=== PATIENT | male | born 1975 | race Caucasian/White ===

== ENCOUNTER 2017-05-05 05:57 | Inpatient (IN) | payer OTHER ==
[2017-04-30 09:35] VITALS: BMI 31.6
[2017-05-05] MEDS ORDERED: PROPOFOL 20 ML ONE ×10 (06:13)
[2017-05-05] MEDS ORDERED: THROMBIN (BOVINE) 5,000 UNIT VIAL TP ONE ×2 (07:19→10:24)
[2017-05-05] MEDS ORDERED: GELATIN, ABSORBABLE 100 EACH SPONGE TP ONE ×2 (07:19→10:24)
[2017-05-05] MEDS ORDERED: MIDAZOLAM HCL 2 MG/2 ML SINGLE DOSE VIAL ONE (08:13)
[2017-05-05] MEDS ORDERED: fentaNYL CITRATE 250 MCG/5 ML VIAL ONE (08:13)
[2017-05-05] MEDS ORDERED: ROCURONIUM BROMIDE 50 MG/5 ML VIAL ONE ×2 (08:29→11:35)
[2017-05-05] MEDS ORDERED: LIDOCAINE HCL/PF 2% SDV 5ML VIAL ONE (08:29)
[2017-05-05] MEDS ORDERED: HYDROmorphone HCL/PF 1 MG/ML VIAL (FOR PYXIS CHARGING ONLY) ONE (10:48)
[2017-05-05] MEDS ORDERED: NEOSTIGMINE METHYLSULFATE 0.5 MG/ML - 10 ML MDV ONE (12:14)
[2017-05-05] MEDS ORDERED: ceFAZolin SODIUM 1 GM VIAL ONE (12:15)
[2017-05-05] MEDS ORDERED: GLYCOPYRROLATE 0.2 MG/1 ML VIAL ONE (12:15)
[2017-05-05] MEDS ORDERED: ONDANSETRON 4 MG/2 ML VIAL ONE (12:16)
[2017-05-05] MEDS ORDERED: BACITRACIN 15 GM TUBE TOPICAL OINTMENT ONE (12:35)
[2017-05-05] MEDS ORDERED: ONDANSETRON 4 MG/2 ML VIAL IVPUSH PRN (12:54)
[2017-05-05] MEDS ORDERED: ACETAMINOPHEN 325 MG TABLET (FP) PO PRN (12:54)
[2017-05-05] MEDS ORDERED: BISACODYL 10 MG SUPP.RECT RC PRN (12:54)
[2017-05-05] MEDS ORDERED: HYDROmorphone *PCA* 10MG/50ML DISP.SYRIN PCA ONE (12:55)
[2017-05-05] MEDS ORDERED: D5-1/2NS+20 MEQ KCL - 1,000 ML IV SCH (13:00)
[2017-05-05] MEDS ORDERED: PROMETHAZINE HCL 25 MG/1 ML VIAL IVPB PRN (13:00)
[2017-05-05] MEDS ORDERED: LACTATED RINGERS SOLUTION 1,000 ML IV SCH (13:00)
[2017-05-05] MEDS ORDERED: HYDROmorphone *PCA* 10MG/50ML DISP.SYRIN PCA SCH (13:00)
[2017-05-05] MEDS ORDERED: SODIUM CHLORIDE 0.45% 1,000 ML IV SCH (13:15)
--- NOTE | 2017-05-05 13:38 | OP ---
Operative Note - Note: Operative Date: 05/05/17 Pre-Operative Diagnosis: Lumbar degenerative disc disease Operation: L5-S1 Laminectomy with instumented fusion and interbody cage placement. Implants: Nuvasive 5.5x35mm screws x2. Nuvasive 5.5x 30mm screws x2. Nuvasive tulips x 4. Nuvasive lock screws x 4. nuvasive jitendra x 2. Nuvasive interbody cage with foragraft and autograft Post-Operative Diagnosis: Same as Pre-op Surgeon: Yehuda Andrea Raw Scales Operator: Lakia Koch Anesthesiologist/OPTICS TECHNICAL OFFICER: Napoleon Woodward Anesthesia: General Specimens Removed: L5-S1 disc Estimated Blood Loss (mls): 200 Fluid Volume Replaced (mls): 3,100 Operative Report Dictated: Yes
--- NOTE | 2017-05-05 13:41 | SURG ---
Surgery Cracking Still Operator Note Cracking Still Operator: Lakia Koch PA-C Date of Service: 05/05/17 Diagnosis: Lumbar degenerative disc disease Procedure: L5-S1 Laminectomy with instumented fusion and interbody cage placement. I was present for the entirety of the operative procedure. For further detail, please refer to operative report. Visit type - Case Type Case Type: Scheduled Admission - Emergency Emergency Visit: No - New patient This patient is new to me today: Yes Date on this admission: 05/05/17
--- NOTE | 2017-05-05 14:15 | OP ---
DATE OF OPERATION: 05/05/2017 PREOPERATIVE DIAGNOSIS: 1. Chronic discogenic back pain. 2. Degenerative disc disease, lumbar spine. 3. Chronic lumbar radiculopathy. POSTOPERATIVE DIAGNOSIS: 1. Chronic discogenic back pain. 2. Degenerative disc disease, lumbar spine. 3. Chronic lumbar radiculopathy. PROCEDURES PERFORMED: 1. Posterior lumbar instrumented spinal fusion at L5-S1 (NuVasive MAS PLIF screws, three 35 x 5.5 mm at L5 and two 30 x 5.5 mm at S1, two 35-mm rods, two set caps, one MAS PLIF cage (4 degree lordosis, 23 mm x 10 mm in height). 2. Transforaminal lumbar interbody fusion from the left side at L5-S1. 3. Insertion of PEEK cage at L5-S1. 4. Local autograft with augmentation with Formagraft. ANESTHESIA: General. OFFAL WORKER: KRYSTLE Raymundo SURGEON: Yehuda Andrea MD INDICATIONS: Patient is a 41-year-old male with severe and chronic history of severe discogenic back pain. This has been refractory to management with physical therapy, multiple oral medications including high-dose narcotic medication as well as multiple epidural steroid injections given by pain management. The patient remains with severe axial back pain with radiating pain down both lower extremities. He has failed nonoperative treatment and has been symptomatic greater than 2 years. The patient is indicated for operative intervention. Risks, benefits, and alternatives of the surgery were discussed in detail with the patient. Informed consent was obtained. DESCRIPTION OF PROCEDURE: The patient was brought into the operating room via stretcher, and general endotracheal anesthesia was administered by the anesthesiologist. The patient had a Quarles catheter inserted, and both lower extremities were placed with needles for intraoperative monitoring using the [employer] NeuroVision system. The patient was then flipped into the prone position onto padded Rc frame, and all bony prominences were padded. The back was then prepped and draped in the usual sterile fashion with a fluoroscopic C-arm to allow for intraoperative AP and lateral fluoroscopic radiographs. A time-out was performed. A midline incision was made at the appropriate level, and dissection was carried down to the level of the fascia exposing the L5-S1 interspace. A deep retractor was then placed. The spine was instrumented as follows: Under fluoroscopic guidance, a fire pilot hole was then made at the pars interarticularis of L5 headed superior and lateral. A 4.5-mm drill was then passed followed by a 5.5-mm tab after checking the haynes of the fire pilot hole. The screws were then inserted at L5 and S1 in the fashion. All the screws stimulated greater than 10 milliamperes. AP and lateral x-rays of the screws show excellent trajectories without medial or inferior trajectory. A total laminectomy of the L5 lamina was then performed with partial medial facetectomy foraminotomy on the left side. The ligamentum flavum was excised. The traversing root was well identified as well as the exiting root. An annulotomy was then made, and a subtotal discectomy was performed. The paddle torin were used to take out the disc space, and 10-mm cage was felt to be appropriate for this patient. A cage was then packed with morselized local autograft and Formagraft, and attempted to place avoiding the nerve roots. Excellent position of the cage was noted with bahai of the disc height. The contralateral facet was then burred out with the precious and packed with morselized local autograft and Formagraft. The screw heads were then engaged. The wound was copiously irrigated, and two 35-mm rods were placed along with set caps which were finally tightened using the torqueing device. Excellent hemostasis was achieved. The deep fascia was closed with No. 1 Vicryl suture. The deep dermal tissues were approximated with 2-0 Vicryl suture. The skin was closed with dianne. A sterile dressing was applied. KRYSTLE Raymundo, was necessary throughout the case for properly assistance and retraction of the neural elements and instrumentation of the spine. This could not have been done without a skilled scheduling assistant. Jeri [id number]
[2017-05-05] MEDS: ONDANSETRON 4 MG/2 ML VIAL IVPUSH PRN (14:52)
[2017-05-05 16:30] LABS: MCHC 33.1 g/dl (32.0-35.9); MEAN CELL VOLUME 87.7 fl (80-96); MEAN PLT VOLUME 8.2 fl (7.5-11.1); PLATELET COUNT 216 K/MM3 (134-434); RDW 12.2 % (11.9-15.9); WHITE BLOOD COUNT 10.9 K/mm3 (4.0-10.8)
[2017-05-05] MEDS: DOCUSATE SODIUM 100 MG CAPSULE (FP) PO SCH ×2 (16:41→23:06)
[2017-05-05 16:47] LABS: ALBUMIN 3.9 g/dl (3.5-5.0); ALK PHOS 46 U/L (32-92); ANION GAP 6 (8-16); BILIRUBIN,TOTAL 0.9 mg/dl (0.2-1.0); CO2 25 mmol/L (22-28); GLUCOSE,RANDOM 131 mg/dl (74-106); SGOT/AST 30 U/L (10-42); SGPT/ALT 45 U/L (10-40); TOT PROT 5.9 g/dl (6.4-8.3)
[2017-05-05] MEDS ORDERED: CEFAZOLIN 1 GM/D5W 1 GRAM/50 ML BAG IVPB SCH (17:30)
[2017-05-06] MEDS: ONDANSETRON 4 MG/2 ML VIAL IVPUSH PRN ×2 (02:13→13:15)
[2017-05-06] MEDS: DOCUSATE SODIUM 100 MG CAPSULE (FP) PO SCH ×3 (06:29→22:18)
[2017-05-06 08:36] LABS: MCH 29.5 pg (25.7-33.7); MCHC 34.2 g/dl (32.0-35.9); MEAN CELL VOLUME 86.3 fl (80-96); MEAN PLT VOLUME 8.3 fl (7.5-11.1); PLATELET COUNT 181 K/MM3 (134-434); RDW 12.4 % (11.9-15.9); WHITE BLOOD COUNT 9.4 K/mm3 (4.0-10.8)
[2017-05-06 09:03] LABS: ANION GAP 6 (8-16); CALCIUM 8.8 mg/dl (8.4-10.2); CO2 29 mmol/L (22-28); CREATININE 0.9 mg/dl (0.6-1.3); GLUCOSE,RANDOM 103 mg/dl (74-106)
[2017-05-06] MEDS: PANTOPRAZOLE 40 MG TABLET (FP) PO SCH (09:16)
[2017-05-06] MEDS ORDERED: morphine SULFATE 4 MG/ML VIAL IM PRN (12:43)
--- NOTE | 2017-05-06 12:48 | PN ---
Progress Note (short form) - Note Progress Note: sitting in chair c/o back pain, states legs better than preop avss wound c/d/i motor 5/ POD#1 -oob/P -pain control with oral analgesics -d/c tailor fitter -home tomorrow with home pt
--- NOTE | 2017-05-06 14:17 | PN ---
Progress Note (short form) - Note Progress Note: ANESTHESIA POSTOP 41 yo male, POD #1, doing well s/p GETA, pain adequately controlled, patient ambulating, tolerating PO. Encouraged IS.
[2017-05-07] MEDS: DOCUSATE SODIUM 100 MG CAPSULE (FP) PO SCH (05:44)
[2017-05-07 05:56] VITALS: BP 142/83; PULSE 109; TEMP 99.9
[2017-05-07 08:49] LABS: MCH 29.5 pg (25.7-33.7); MCHC 33.5 g/dl (32.0-35.9); MEAN PLT VOLUME 8.9 fl (7.5-11.1); PLATELET COUNT 168 K/MM3 (134-434); RDW 12.4 % (11.9-15.9); WHITE BLOOD COUNT 11.1 K/mm3 (4.0-10.8)
[2017-05-07 08:50] LABS: ANION GAP 9 (8-16); CALCIUM 8.7 mg/dl (8.4-10.2); CO2 27 mmol/L (22-28); CREATININE 0.9 mg/dl (0.6-1.3); GLUCOSE,RANDOM 98 mg/dl (74-106)
[2017-05-07] MEDS: PANTOPRAZOLE 40 MG TABLET (FP) PO SCH (09:44)
== END 2017-05-07 13:05 | disposition home or self-care (01) | DRG 304 ==
LOC: FM/S 05:57
PROVIDERS: ADMIT Orthopaedic Surgery Orthopaedic Surgery of the Spine; ATTEND Orthopaedic Surgery Orthopaedic Surgery of the Spine
PROC: 0SB20ZZ Excision of Lumbar Vertebral Disc, Open Approach (ICD-10-PCS; 2017-05-05)
PROC: 0SG00AJ Fusion of Lumbar Vertebral Joint with Interbody Fusion Device, Posterior Approach, Anterior Column, Open Approach (ICD-10-PCS; principal; 2017-05-05 08:50)
DX: M54.16 Radiculopathy, lumbar region (principal); M47.896 Other spondylosis, lumbar region
CPT/HCPCS: 36415; 72100-TC; 80048; 80053; 85027; 86850; 86900; 86901; 94010; 97116-GP; 97162-GP